=== PATIENT | male | born 1985 | race Caucasian/White ===

== ENCOUNTER 2018-07-01 22:20 | Emergency (ER) | payer MEDICAID ==
[~2018-07-01] VITALS: Ht 152.4 cm; Wt 52.0 kg
[2018-07-01] MEDS ORDERED: HYDROcodone/APAP 5/325 TABLET PO ONE (23:30)
[2018-07-01] MEDS ORDERED: CYCLOBENZAPRINE 10 MG TABLET PO ONE (23:30)
[2018-07-01] MEDS ORDERED: HYDROcodone/APAP 5/325 TABLET ONE (23:32)
[2018-07-01] MEDS ORDERED: CYCLOBENZAPRINE 10 MG TABLET ONE (23:32)
[2018-07-01 23:55] VITALS: BP 125/67
== END 2018-07-01 23:57 | disposition home or self-care (01) ==
LOC: ED 23:51
DX: S16.1XXA Strain of muscle, fascia and tendon at neck level, initial encounter (principal); M25.511 Pain in right shoulder; Z88.1 Allergy status to other antibiotic agents; Z88.0 Allergy status to penicillin; Z88.8 Allergy status to other drugs, medicaments and biological substances; X58.XXXA Exposure to other specified factors, initial encounter; Y93.89 Activity, other specified; Y99.8 Other external cause status; Y92.89 Other specified places as the place of occurrence of the external cause
CPT/HCPCS: 99283